=== PATIENT | female | born 1990 | race Hispanic/Latino ===

== ENCOUNTER → 2016-04-18 | Day surgery (SDC) | payer OTHER ==
[~2016-04-18] VITALS: Ht 152.4 cm; Wt 66.7 kg
[~2016-04-18] MED LIST: IBUPROFEN800 M1 PO; PERCOCET 5-3251 EACH PO
[2016-04-18 13:29] LABS: ABSOLUTE BASOPHIL COUNT 0 /CUMM (0.0-0.2); ABSOLUTE EOSINOPHIL COUNT 0.1 /CUMM (0.0-0.7); ABSOLUTE GRANULOCYTE CT 4.3 /CUMM (1.4-6.5); ABSOLUTE LYMPH COUNT 2.3 /CUMM (1.2-3.4); ABSOLUTE MONOCYTE COUNT 0.6 /CUMM (0.10-0.60); BASOPHIL % 0.6 % (0.0-2.0); EOSINOPHIL % 1.6 % (0-5); GRANULOCYTE % 58.7 % (42.2-75.2); HEMATOCRIT 42.4 % (37-47); MEAN CORPUSCULAR HGB CONC 33.7 G/DL (33.0-37.0); MEAN CORPUSCULAR VOLUME 89.1 FL (81.0-99.0); MEAN PLATELET VOLUME 8.6 FL (7.4-10.4); PLATELET COUNT 202 /CUMM (130-400); RBC DISTRIBUTION WIDTH 14.6 % (11.5-14.5); RED BLOOD CELL CT 4.76 /CUMM (4.20-5.40); WHITE BLOOD CELL COUNT 7.4 /CUMM (4.8-10.8)
[2016-04-18 13:39] LABS: PT 10.6 SEC (9.4-12.5); PTT 27 SEC (25-37)
--- NOTE | 2016-04-22 13:56 | Operative Report ---
Operative/Inv Procedure Report Surgery Date: 04/18/16 Name of Procedure: Suction D&C I Pre-Operative Diagnosis: MISSED AB Post-Operative Diagnosis: Same Estimated Blood Loss: 50ml to 100ml Surgeon/Stitcher Standard Machine: ROCIO FISHMAN,DAVY Belle Anesthesia: moderate sedation Operative/Procedure Note Note: 0 patient was taken the operating room placed prone position grossly patient was positioned was catheterized examination anesthesia performed single-tooth tenaculum placed on the Intralipid cervix gentle downward traction patient tolerated that well at this point cervix was side 29 Hegar to allow for a #8 curette curved sharp curettage endometrial lining was performed proximal conception were noted suction curettage performed intravenous Pitocin was started aid in uterine contractility patient tolerated that well hemostasis was apparent all specimen sent to pathology patient was returned spine position to awake from anesthesia and transferred recovery room awake and alert with counts correct
== END ==
LOC: STS 07:00
PROVIDERS: Specialist
DX: O02.1 Missed abortion (principal)
CPT/HCPCS: 36415; 81001; 88261; 88305; J0131; J1100; J2250; J2405

== ENCOUNTER 2017-05-13 09:32 | Inpatient (IN) | payer OTHER ==
[~2017-05-13] VITALS: Ht 152.4 cm; Wt 77.1 kg
[2017-05-13] MEDS ORDERED: PRENATAL TABLE1 EAC2 PO (09:51)
[2017-05-13 10:39] LABS: ABSOLUTE BASOPHIL COUNT 0 /CUMM (0.0-0.2); ABSOLUTE EOSINOPHIL COUNT 0.1 /CUMM (0.0-0.7); ABSOLUTE GRANULOCYTE CT 6.8 /CUMM (1.4-6.5); ABSOLUTE LYMPH COUNT 1.9 /CUMM (1.2-3.4); ABSOLUTE MONOCYTE COUNT 0.7 /CUMM (0.10-0.60); BASOPHIL % 0.2 % (0.0-2.0); EOSINOPHIL % 0.7 % (0-5); GRANULOCYTE % 71.7 % (42.2-75.2); HEMATOCRIT 32.6 % (37-47); MEAN CORPUSCULAR HGB 28.4 PG (27.0-31.0); MEAN CORPUSCULAR HGB CONC 33.5 G/DL (33.0-37.0); MEAN CORPUSCULAR VOLUME 84.9 FL (81.0-99.0); MEAN PLATELET VOLUME 9.5 FL (7.4-10.4); PLATELET COUNT 148 /CUMM (130-400); RBC DISTRIBUTION WIDTH 15.9 % (11.5-14.5); RED BLOOD CELL CT 3.84 /CUMM (4.20-5.40); WHITE BLOOD CELL COUNT 9.4 /CUMM (4.8-10.8)
--- NOTE | 2017-05-13 15:26 | History & Physical ---
General Information and HPI MD Statement: I have seen and personally examined CODY ANDINO and documented this H& P. The patient is a 27 year old female at [] weeks and [] days gestation who presented with a chief complaint of []. Once induction induction. She has had adequate care. The patient had an ultrasound done in the childbirth center demonstrate transverse R when the ultrasound was repeated AB was in vertex position with a footling presentation. Patient was allowed to walk freely in the childbirth center on. Valentin and and found to be vertex and the induction continued. Patient is well aware of the risks of the induction on. I do not feel comfortable letting her go home without either an induction or section. Patient does not want a section History of Present Illness: 26-year-old 14 para 5 with a previous history of vaginal twins at 39 weeks gestation with an unstable lie throughout from 30 weeks on presents today for induction after a pelvic exam my office when she was 3 cm vertex. And the childbirth center the patient is infant was in transverse is now by ultrasound and by physical exam 3 cm and vertex. Patient I discussed the risks of fully presentation I's not appear to be any cord in front baby's head delivered by ultrasound physical exam 5 area and we discussed the treatment plan of using Pitocin on and close monitoring I and only rupturing membranes when the operating room was available abdomen the patient is fully dilated. 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 2 oz. Dilation (cm): 3 Effacement (%): 80 Station: 0 Membranes: intact Fluid: unknown Fundal Height (cm): 40 Multiple Gestation? No Contractions: None Patient for Induction? Yes Rivero Score Rivero Score Response Value Cervix Position: anterior 2 Cervix Consistency: soft 2 Cervix Effacement: >80% 3 Cervix Dilation: 3-4 cm 2 Total 9 Physical Exam: Thin female HEENT anicteric lungs clear heart S1 and S2 abdomen soft estimated weight is 7 pounds 70s negative edema Labs Blood Type & Rh: Rh+ Antibody Screen: Negative Hct/Hgb & Platelets #1: 1132.45 Hct/Hgb & Platelets #2: 11:30 06/05/1988 Rubella: Not available VDRL #1: Negative VDRL #2: Negative HbsAg: Not available HIV #1: Negative HIV #2 Negative 1 Hr PG: -150 3 Hr PG: Patient did not complete three-hour Group B Strep: Positive group B strep Initial Ultrasound: Normal consistent with gestational age Anatomy Ultrasound: Normal Genetic Testing: Negative for translocation genetic counseling negative Assessment/Plan Assessment/Plan: Assessment term unstable lie grand multipara plan re-ultrasound check lie induction with Pitocin monitor closely Hemabate balloon Methergine and Cytotec all present for delivery for risk of hemorrhage positive group B strep. Plan will spontaneous vaginal delivery antibiotics ampicillin As Ranked By This Provider Problem List: 1. Core Measures Venous Thromboembolism VTE Risk Factors / No Mechanical VTE Prophylaxis d/t N/A MechProphylax Ordered No VTE Pharm Prophylaxis d/t NA PharmProphylax ordered
--- NOTE | 2017-05-14 12:28 | PN- Obstetrical ---
Subjective Subjective: REFUSED C/S Objective Last 24 Hrs of Vital Signs/I&O PER PERIGEN Physical Exam: PETITE HF IN NAD ABD SOFT EFW 3600 Obstetric Exam Dilation (cm): 4 Effacement (%): 80 Station: 0 Membranes: AROM Fluid: clear Multiple Gestation? No Contractions: Q 3 MINUTES Assessment/Plan Assessment/Plan ASSESS TERM SEVEREV POLYHYDRAMNIOS PLAN AROM CONTROLLED Problem List: 1. Attending MD Review Statement Attending Statement Attending MD Statement: examined this patient
--- NOTE | 2017-05-14 15:07 | Labor & Delivery Summary ---
Delivery Summary Vaginal Delivery: Vaginal: vertex Episiotomy/Lacerations: Episiotomy/Lacerations: none Placenta: Placenta: spontanteous, normal, 3 vessel, nuchal cord (x_) (1) Anesthesia: block Additional Comments: S MECONIUM VIABLE FEMALE INFANT. PLACENTA BY CCT .VIABLE FEMALE INFANT OVER INTACT PERINEUM.
[2017-05-15 08:01] LABS: ABSOLUTE BASOPHIL COUNT 0.1 /CUMM (0.0-0.2); ABSOLUTE EOSINOPHIL COUNT 0.1 /CUMM (0.0-0.7); ABSOLUTE GRANULOCYTE CT 7.2 /CUMM (1.4-6.5); ABSOLUTE LYMPH COUNT 2.2 /CUMM (1.2-3.4); BASOPHIL % 0.5 % (0.0-2.0); EOSINOPHIL % 0.9 % (0-5); GRANULOCYTE % 68.4 % (42.2-75.2); MEAN CORPUSCULAR HGB 28.4 PG (27.0-31.0); MEAN CORPUSCULAR HGB CONC 32.9 G/DL (33.0-37.0); MEAN CORPUSCULAR VOLUME 86.3 FL (81.0-99.0); MEAN PLATELET VOLUME 9.8 FL (7.4-10.4); PLATELET COUNT 140 /CUMM (130-400); RBC DISTRIBUTION WIDTH 16.5 % (11.5-14.5); RED BLOOD CELL CT 3.59 /CUMM (4.20-5.40); WHITE BLOOD CELL COUNT 10.5 /CUMM (4.8-10.8)
[2017-05-15] MEDS ORDERED: PERCOCET 5-3251 EACH PO (09:12)
[2017-05-15] MEDS ORDERED: IBUPROFEN800 M1 PO (09:12)
--- NOTE | 2017-05-15 09:26 | PN- Post Delivery/GYN ---
Subjective Subjective: NO COMPLAINTS ABD SOFT FUNDUS FIRM NT LOCHIA MINIMAL EXT -EDEMA -HOMANS Objective Last 24 Hrs of Vital Signs/I&O ASSESS S/P PLAN CONT PPC Assessment/Plan Assessment/Plan ASSESS S/P PLAN CONT PPC PERCOCET
== END 2017-05-16 12:16 | DRG 560 ==
LOC: GNO 09:32
PROVIDERS: Specialist
PROC: 3E033VJ Introduction of Other Hormone into Peripheral Vein, Percutaneous Approach (ICD-10-PCS; 2017-05-13)
PROC: 10E0XZZ Delivery of Products of Conception, External Approach (ICD-10-PCS; principal; 2017-05-14)
PROC: 10907ZC Drainage of Amniotic Fluid, Therapeutic from Products of Conception, Via Natural or Artificial Opening (ICD-10-PCS; 2017-05-14)
DX: O32.0XX0 Maternal care for unstable lie, not applicable or unspecified (principal); O40.3XX0 Polyhydramnios, third trimester, not applicable or unspecified; O69.81X0 Labor and delivery complicated by cord around neck, without compression, not applicable or unspecified; Z3A.39 39 weeks gestation of pregnancy; Z37.0 Single live birth
CPT/HCPCS: GNOP; GNOS; 36415; 81001; 87086; J0290; J1650; J7120